=== PATIENT | male | born 1975 | race Caucasian/White ===

== ENCOUNTER 2016-06-29 18:44 | Emergency (ER) | payer MEDICARE ==
[~2016-06-29] VITALS: Ht 190.5 cm; Wt 137.3 kg
[~2016-06-29 18:44] MED LIST: DRON10CA2 PO; LAMICTAL 300 MG PO; LAMICTAL PO; LOPE1TAB13 PO; LTH300C PO; METR500T PO; OLAN10TA19 PO; OLAN10TA3 PO; OXYC1TAB24 PO; REM15 PO; VALIUM; VANC125C10 PO
[2016-06-29 18:50] VITALS: BP 163/98; PULSE 126; RESP 20; O2SAT 95
--- NOTE | 2016-06-29 19:20 | DRSVH ---
PROCEDURE: X-RAY CHEST, TWO VIEWS ([id number]) INDICATIONS: shortness of breath, cough, fever TECHNIQUE: 2 views of the chest were acquired. COMPARISON: None. FINDINGS: Surgical changes and devices: None. Lungs and pleura: Patchy pulmonary opacities are present within the right middle lobe. No pleural eff usion or pneumothorax. Mediastinum: Mediastinal contours are normal. Heart size is normal. Bones and chest wall: No suspicious bony abnormalities. Soft tissues appear unremarkable. IMPRESSION: Right middle lobe radiopacity suspicious for aspiration or infection. Dictated by: Candace Woodward M.D. on 06/29/2016 at 19:18 Approved by: Candace Woodward M.D. on 06/29/2016 at 19:18
[2016-06-29 19:30] LABS: BASOPHILS % (AUTO) 0.2 % (0-3); EOSINOPHILS % (AUTO) 0.3 % (0-5); MONOCYTES % (AUTO) 9.9 % (4-12); Mean Corpuscular Hemoglobin 30.2 pg (27.0-35.0); Mean Corpuscular Volume 87.8 fL (81-100); NEUTROPHILS % (AUTO) 75.3 % (40-74); Platelet Count 295 bil/L (150-400)
--- NOTE | 2016-06-29 21:03 | ED.REPORT ---
HPI-Dyspnea / Wheezing Date of Service Jun 29, 2016 ED Provider: Erwin Banks MD Pt is a 40 y/o male presenting to the ED c/o cough onset 2 days ago. The patient states that his symptoms today are consistent with previous episodes of pneumonia/bronchitis. He was seen at Urgent Care yesterday and was given albuterol and a Z-pack. He states that he is experiencing orthopnea, SOB, migraine headache, nausea, and vomiting all causing him to be unable to sleep comfortably which is why he came to the ED. Nursing Notes Stated Complaint: COLD SYMPTOMS, POSS BRONCHITIS, HEADACHE Chief Complaint: FLU/Cold Symptoms Nursing Notes Reviewed: Yes Allergies: Coded Allergies: droperidol (Verified Allergy, Severe, paranoia, 06/29/16) prochlorperazine (Verified Allergy, Severe, get paranoid, 06/29/16) Haloperidol Lactate (Verified Allergy, Unknown, 06/29/16) haloperidol (Verified Allergy, Unknown, 06/29/16) prochlorperazine edisylate (Verified Allergy, Unknown, 06/29/16) prochlorperazine maleate (Verified Allergy, Unknown, 06/29/16) Scheduled ([lamictal 150]) 150 MG PO AM ([lamictal 300mg]) 300 MG PO PM Dronabinol (Dronabinol) 10 Mg Capsule 10 MG PO TID Levofloxacin (Levaquin) 750 Mg Tablet 750 MG PO DAILY Severn Carbonate-Expunged Drug, Do Not Renew (Severn Carbonate-Expunged Drug, Do Not Renew) 300 Mg Capsule 600 MG PO BID Loperamide/Simethicone (Imodium Multi-Symptom Rel Cplt) 1 Each Tablet 1 EACH PO with loose stool max of 6 pills in a 24hr period Metronidazole (Flagyl) 500 Mg Tablet 500 MG PO TID Mirtazapine-Expunged Drug, Do Not Renew! (Remeron-Expunged Drug, Do Not Renew!) 15 Mg Tablet 7.5 MG PO HS OLANZapine-Expunged Drug, Do Not Renew! (OLANZapine-Expunged Drug, Do Not Renew! ) 10 Mg Tablet 25 MG PO HS Olanzapine-Expunged Drug, Do Not Renew! (Zyprexa-Expunged Drug, Do Not Renew!) 10 Mg Tablet 5 MG PO AM Promethazine DM Syrup (Promethazine DM Syrup) 118 Ml Syrup 5 ML PO HS Vancomycin (Vancomycin) 125 Mg Capsule 125 MG PO QID Scheduled PRN ([Valium]) 5-10 MG HS PRN PRN oxyCODONE-Acetaminophen 5-325 mg (oxyCODONE-Acetaminophen 5-325 mg) 1 Each Tablet 1-2 TAB PO Q6H PRN PRN For Pain oxyCODONE-Acetaminophen 5-325 mg (oxyCODONE-Acetaminophen 5-325 mg) 1 Each Tablet 1-2 TAB PO Q6H PRN PRN For Pain General Time Seen by MD: 21:00 Chief Complaint Cough Hx Obtained From: Patient Arrived By: Walk-in Sudden in Onset?: No Onset Occurred: 2 days ago Symptom Duration: Since onset Quality: Aching (head) Severity: Current: Moderate Severity: Maximum: Moderate Recent Healthcare: Previous diagnosis Similar Sx Previous: Yes Past Medical History Past Medical History Notes: PCP: Dr. Campbell Past Medical History Chronic neck pain Tailbone fracture Migraine Bipolar illness HX of opioid dependence - he has been clean for 5 years Reports: Mental illness Past Surgical History Dental surgeries Family History Noncontributory Smoking History Current Every Day Smoker Social History Alcohol Use: Denies alcohol use Drug Use: THC Other Social History: Good social support, , Local resident Ambulatory Status Independent Review of Systems Constitutional: Denies: Chills, Fever Respiratory: Reports: Non-productive cough, Shortness of breath Cardiovascular: Denies: Chest pain, Dyspnea on exertion Complete sys rev & neg: except as marked. Neurologic: Reports: Headache, Denies: Focal weakness, Numbness Physical Exam Initial Vital Signs Vital Signs (First) Date Time Temp Pulse Resp B/P Pulse Ox O2 Delivery O2 Flow Rate FiO2 06/29/16 18:50 37.0 126 20 163/98 95 Room Air Initial VS: Reviewed, Vital signs abnormal Head / Eyes: Atraumatic, Normocephalic, PERRL ENT: Mucous membranes moist, Conjunctiva normal, No scleral icterus Abdomen / GI: Soft, Non-tender Extremities: Vascular intact, Neuro intact, No swelling, No tenderness Skin: Warm, Dry, No cyanosis Neurologic: Alert, Oriented, Nonfocal Psychiatric: Mood/affect normal, Behavior normal, Normal thought content General/Constitutional: Awake, Alert, Cooperative, Not toxic appearing Distress / Hydration: Positive: Distress mild Appearance / Presentation: Positive: Uncomfortable Neck: Atraumatic, Supple, No meningismus, Full range of motion Respiratory / Chest: Atraumatic, No respiratory distress, No retractions, No stridor, No chest tenderness, No chest wall deformity, No crepitus Coarse breath sounds bilaterally Cardiovascular: Regular rhythm, Heart sounds NL, No gallop, No murmurs, No rubs , Cap refill not delayed, Peripheral circulation NL Heart Rate / Rhythm: Positive: Tachycardia Interpretation & Diagnostics Lab Results Interpretation Result Diagram: 06/29/16191406/29/161914 Test 06/29/16 19:15 White Blood Count 11.6th/mm3 (3.8-10.1) Red Blood Count 5.49mil/mm3 (4.40-5.80) Hemoglobin 16.6g/dL (13.8-17.2) Hematocrit 48.2% (41.0-50.0) Mean Corpuscular Volume 87.8fL (81-100) Mean Corpuscular Hemoglobin 30.2pg (27.0-35.0) Mean Corpuscular Hemoglobin Concent 34.4% (32.0-37.0) Red Cell Distribution Width 13.7% (12.3-15.4) Platelet Count 295bil/L (150-400) Neutrophils (%) (Auto) 75.3% (40-74) Lymphocytes (%) (Auto) 14.0% (14-46) Monocytes (%) (Auto) 9.9% (4-12) Eosinophils (%) (Auto) 0.3% (0-5) Basophils (%) (Auto) 0.2% (0-3) Sodium Level 139mEq/L (134-144) Potassium Level 3.8mEq/L (3.5-5.2) Chloride Level 101mEq/L (97-108) Carbon Dioxide Level 21mmol/L (18-29) Blood Urea Nitrogen 6mg/dL (6-24) Creatinine 0.66mg/dL (0.76-1.27) Estimat Glomerular Filtration Rate 141mL/min (>59) Glucose Level 122mg/dL (60-99) Calcium Level 9.2mg/dL (8.5-10.1) Total Bilirubin 0.3mg/dL (0.0-1.2) Aspartate Amino Transf (AST/SGOT) 21U/L (0-50) Alanine Aminotransferase (ALT/SGPT) 21U/L (0-44) Alkaline Phosphatase 73U/L (25-150) Total Protein 7.2g/dL (6.4-8.4) Albumin 4.5g/dL (3.4-5.0) ECG Interpretation ECG Interpretation: Sinus tachycardia rate 101 Time: 23:35 Interpreted by: ED physician Normal ECG Interpretation: No acute ischemic changes X-Ray Chest Interpretation Chest Xray Interpretation: IMPRESSION: Right middle lobe radiopacity suspicious for aspiration or infection. Dictated by: Candace Woodward M.D. on 06/29/2016 at 19:18 Approved by: Candace Woodward M.D. on 06/29/2016 at 19:18 View: Portable, AP & lat Interpretation / Wet Read by: Interpret - Radiologist Re-Eval/Medical Decision Med Decision/Clinical Course Right-sided pneumonia. Started on Levaquin. Hydrated and vital signs stable. O2 95% RA. Treated with oral antibiotics 1 week. Follow-up with primary doctor 1 day. Patient stable for discharge home with return precautions. Re-Evaluation/Progress : Time of Eval: 21:15 Re-Evaluation/Progress Note: Pt rechecked. Informed pt of plan for treatment. Pt understands and agrees with plan for treatment. F/U instructions and RTER warnings given. All questions addressed. Counseled Regarding: Diagnosis, Lab results, Need for follow-up, When/why to return to ED Discharge & Departure Impression: Primary Impression: Right middle lobe pneumonia Pneumonia type: due to unspecified organism Qualified Code: J18.9 - Pneumonia, unspecified organism Disposition: Home Discharge Condition All VS Reviewed: Yes Condition: Stable Patient Instructions: Bacterial Pneumonia (ED) Additional Instructions: You have a right middle lobe pneumonia. Take the antibiotics as directed. Stop the Z-pack. Return to the emergency department if your breathing worsens, you are persistently vomiting, for high fever, or for other concerning symptoms. Follow-up with a medical provider tomorrow for a recheck. Referrals: Fausto Campbell MD (PCP) Scribe Attestation Portions of this note were transcribed by Jorge A Wilson. I, Dr. Banks, personally performed the history, physical exam and medical decision-making; I reviewed and confirmed the accuracy of the information in the transcribed note. Signed by Erick Antunez, 06/29/162129 copies to: Fausto Campbell MD, Ben M MD Jun 29, 2016 21:03 JORGE A WILSON Jun 29, 2016 21:05
[2016-06-29] MEDS ORDERED: levoFLOXacin 500 mg Tablet PO ONE (21:20)
[2016-06-29] MEDS ORDERED: Promethazine 25 mg/mL Inj IM ONE (21:20)
[2016-06-29] MEDS ORDERED: HYDROcodone-APAP 10-325 mg PO ONE (21:20)
[2016-06-29] MEDS ORDERED: 0.9% Sodium Chloride 1,000 ML IV ONE (21:21)
[2016-06-29 22:13] VITALS: BP 138/89; PULSE 112; O2SAT 94
[2016-06-29] MEDS ORDERED: D-ME118S8 PO (22:48)
[2016-06-29] MEDS ORDERED: LEVO750T9 PO (22:48)
[2016-06-29] MEDS ORDERED: HYDROmorphone 0.5 mg/0.5 mL iSecure Syringe IVPUSH ONE (23:35)
[2016-06-29 23:55] VITALS: BP 151/95; PULSE 95; RESP 18; O2SAT 95
== END 2016-06-29 23:57 | disposition home or self-care (01) ==
LOC: SED 18:44
DX: J18.9 Pneumonia, unspecified organism (principal); F17.200 Nicotine dependence, unspecified, uncomplicated; Z88.8 Allergy status to other drugs, medicaments and biological substances
CPT/HCPCS: 36415; 71020; 80053; 85025; 93005; 96361; 96372; 96374; 99285; J1170; J2550; J7030